=== PATIENT | male | born 1950 | race African-American/Black ===

== ENCOUNTER 2019-04-16 10:39 | Emergency (ER) | payer OTHER ==
[~2019-04-16] VITALS: Ht 190.5 cm; Wt 72.7 kg
[~2019-04-16 10:39] MED LIST: ASPI81 PO; DSS100 PO; LURA40 PO; METH10 PO; OMEP20 PO
[2019-04-16 11:28] VITALS: BP 133/71
[2019-04-16] MEDS: IBUPROFEN 600 MG TABLET PO ONE (12:22)
== END 2019-04-16 12:36 | disposition home or self-care (01) ==
LOC: EMS 10:41
DX: M79.642 Pain in left hand (principal); F11.90 Opioid use, unspecified, uncomplicated; F17.210 Nicotine dependence, cigarettes, uncomplicated; Z79.899 Other long term (current) drug therapy; Z59.0 Homelessness; W10.9XXA Fall (on) (from) unspecified stairs and steps, initial encounter; Y93.89 Activity, other specified; Y92.89 Other specified places as the place of occurrence of the external cause; Y99.8 Other external cause status

== ENCOUNTER 2020-02-13 23:50 | Emergency (ER) | payer OTHER ==
[~2020-02-13] VITALS: Ht 190.5 cm; Wt 74.5 kg
[~2020-02-13 23:50] MED LIST changes: -ASPI81 PO; -DSS100 PO; -LURA40 PO; -OMEP20 PO
[2020-02-14 00:11] VITALS: BP 140/80
[2020-02-14] MEDS ORDERED: POLY119P17 PO (00:44)
[2020-02-14] MEDS ORDERED: AMLO10TA7 PO (00:44)
[2020-02-14] MEDS ORDERED: MELA5TAB3 PO (00:44)
[2020-02-14] MEDS ORDERED: LANS30CA56 PO (00:44)
[2020-02-14] MEDS ORDERED: FURO40 PO (00:44)
[2020-02-14] MEDS ORDERED: OXYC10TA59 PO (00:44)
[2020-02-14] MEDS ORDERED: MINO50CA PO (00:44)
[2020-02-14] MEDS ORDERED: CHOL100018 PO (00:44)
[2020-02-14] MEDS ORDERED: GABA-1181 PO (00:44)
[2020-02-14] MEDS ORDERED: ASCO500 PO (00:44)
[2020-02-14] MEDS ORDERED: THIA100T80 PO (00:44)
[2020-02-14] MEDS ORDERED: PERTUSS(ACELL),DIPH,TET VAC/PF 0.5 ML VIAL IM ONE (00:45)
== END 2020-02-14 01:36 | disposition left against medical advice (07) ==
LOC: EMS 23:50
DX: S00.91XA Abrasion of unspecified part of head, initial encounter (principal); F17.210 Nicotine dependence, cigarettes, uncomplicated; F11.90 Opioid use, unspecified, uncomplicated; M25.512 Pain in left shoulder; W01.0XXA Fall on same level from slipping, tripping and stumbling without subsequent striking against object, initial encounter; Y93.89 Activity, other specified; Y92.89 Other specified places as the place of occurrence of the external cause; Y99.8 Other external cause status
CPT/HCPCS: 90471; 90715

== ENCOUNTER → 2020-02-20 | Emergency (ER) | payer OTHER ==
[~2020-02-20] VITALS: Ht 190.5 cm; Wt 77.3 kg
[~2020-02-20] MED LIST changes: +AMLO10TA7 PO; +ASCO500 PO; +CHOL100018 PO; +FURO40 PO; +GABA-1181 PO; +LANS30CA56 PO; +MELA5TAB3 PO; +MINO50CA PO; +OXYC10TA59 PO; +POLY119P17 PO; +THIA100T80 PO
[2020-02-20 08:21] LABS: BASOPHILS % (AUTO) 0.9 % (0.0-2.0); EOSINOPHILS % (AUTO) 4.7 % (1.0-6.0); HEMATOCRIT 32.8 % (41-53); HEMOGLOBIN 10.4 g/dL (13.5-17.5); LYMPHOCYTES # (AUTO) 1.3 K/uL (1.0-4.8); MEAN CORPUSCULAR HEMOGLOBIN 26.7 pg (26.0-34.0); MEAN CORPUSCULAR HGB CONC 31.8 G/dL (31.0-37.0); MEAN CORPUSCULAR VOLUME 84 fL (80-100); MONOCYTES # (AUTO) 0.4 K/uL (0.1-1.0); MONOCYTES % (AUTO) 11.4 % (2.0-9.0); NEUTROPHILS # (AUTO) 1.9 K/uL (1.8-7.7); PLATELET COUNT (AUTO) 212 K/uL (150-450); RED BLOOD CELL COUNT(AUTO) 3.91 MIL/uL (4.50-5.90); RED CELL DISTRIBUTION WIDTH 18.5 % (11.5-14.5)
[2020-02-20 08:30] LABS: ANION GAP 7 mmol/L (8-16); CALCIUM, TOTAL 8.9 mg/dL (8.8-10.5); CARBON DIOXIDE 30 mmol/L (22-29); CHLORIDE 103 mmol/L (98-107); GLOMERULAR FILTR. RATE CALC > 60 mL/min (>60); GLUCOSE,RANDOM 100 mg/dL (70-110); POTASSIUM 4.1 mmol/L (3.5-5.1); SODIUM SERUM 140 mmol/L (136-145); UREA NITROGEN, BLOOD 24 mg/dL (7-18)
[2020-02-20 08:36] LABS: ALANINE AMINOTRANSFERASE 36 U/L (12-78); ALBUMIN 3.9 g/dL (3.4-5.0); ALKALINE PHOSPHATASE 120 U/L (46-116); ASPARTATE AMINOTRANSFERASE 44 U/L (15-37); BILIRUBIN,TOTAL 0.5 mg/dL (0.1-1.0); TOTAL PROTEIN, SERUM 8.6 g/dL (6.4-8.2)
[2020-02-20 08:39] LABS: ACETAMINOPHEN < 2 mcg/mL (10-30)
[2020-02-20 11:45] VITALS: BP 119/62
== END | disposition home or self-care (01) ==
LOC: EMS 07:30
DX: T40.2X1A Poisoning by other opioids, accidental (unintentional), initial encounter (principal); I10 Essential (primary) hypertension; F17.210 Nicotine dependence, cigarettes, uncomplicated; G89.29 Other chronic pain; F11.90 Opioid use, unspecified, uncomplicated; F32.9 Major depressive disorder, single episode, unspecified; F20.9 Schizophrenia, unspecified; Z59.0 Homelessness; Z79.899 Other long term (current) drug therapy; Y92.89 Other specified places as the place of occurrence of the external cause
CPT/HCPCS: 36415; 80053; 85025; 99283; G0480; G0481

== ENCOUNTER 2020-11-27 10:57 | Emergency (ER) | payer OTHER ==
[~2020-11-27] VITALS: Ht 172.7 cm; Wt 80.0 kg
[~2020-11-27 10:57] MED LIST changes: +AMLO-258 PO; -AMLO10TA7 PO; -CHOL100018 PO; +CHOL100044 PO
[2020-11-27 12:52] VITALS: BP 104/74
== END 2020-11-27 13:02 | disposition left against medical advice (07) ==
LOC: EMS 10:57
DX: T40.3X1A Poisoning by methadone, accidental (unintentional), initial encounter (principal); I10 Essential (primary) hypertension; F17.210 Nicotine dependence, cigarettes, uncomplicated; Z79.899 Other long term (current) drug therapy; Y92.89 Other specified places as the place of occurrence of the external cause
CPT/HCPCS: 99283; Z7502

== ENCOUNTER 2021-04-20 19:21 | Emergency (ER) | payer OTHER ==
[~2021-04-20] VITALS: Ht 175.3 cm; Wt 72.0 kg
[~2021-04-20 19:21] MED LIST changes: +CHOL-35 PO; -CHOL100044 PO
[2021-04-20 20:15] VITALS: BP 151/78
[2021-04-20] MEDS ORDERED: HYDROCODONE/ACETAMINOPHEN 10-325 MG TABLET PO ONE (20:30)
== END 2021-04-20 21:00 | disposition home or self-care (01) ==
LOC: EMS 19:36
DX: G89.29 Other chronic pain (principal)
CPT/HCPCS: 99283